=== PATIENT | male | born 1935 | race Caucasian/White ===

== ENCOUNTER 2017-09-10 17:19 | Emergency (ER) | payer MEDICARE, OTHER ==
[~2017-09-10] VITALS: Ht 160 cm; Wt 60.0 kg
[2017-09-10 17:23] VITALS: Ht 160 cm; Wt 60.0 kg
--- NOTE | 2017-09-10 17:45 | ERA ---
ER Documentation Chief Complaint Date/Time DATE: 09/10/17 TIME: 17:36 Chief Complaint bibr co weakness, for past few hours HPI 81-year-old [place]-speaking male comes in with his son for weakness that was first noticed 2-3 hours ago according to son. It was noticed that he is having trouble opening his pill bottle. Is also noticed that he was having trouble holding a cup by his . He has a history of 2 previous strokes. Son reports that his speech was a bit slurred and he was seeming slow at this time. He now states that that has resolved and the patient's right hand .net developer strength is now very strong he says. He is not any blood thinners except for an 81 mg aspirin. Motion translation is used for the patient to be other communicate that he feels well now and does not have any symptoms currently. ROS All systems reviewed and are negative except as per history of present illness. 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 ) Anesthesia Reaction: No Hx Neurological Disorder: No Hx Cardiac Disorders: Yes (htn , stroke ) Hx Psychiatric Problems: No Hx Miscellaneous Medical Probl: No Hx Alcohol Use: No Hx Substance Use: No Hx Tobacco Use: No Smoking Status: Former smoker Physical Exam Vitals Vital Signs Date Time Temp Pulse Resp B/P Pulse Ox O2 Delivery O2 Flow Rate FiO2 09/10/17 19:28 97.9 74 25 146/135 100 Nasal Cannula 09/10/17 18:09 68 18 133/65 99 Nasal Cannula 2.0 09/10/17 17:30 Nasal Cannula 2 09/10/17 17:23 97.8 89 18 122/76 98 Physical Exam Const: [] No distress Head: Atraumatic Eyes: Normal Conjunctiva ENT: Normal External Ears, Nose and Mouth. Neck: Full range of motion..~ No meningismus. No JVD Resp: Clear to auscultation bilaterally Cardio: Regular rate and rhythm, no murmurs Abd: Soft, non tender, non distended. Normal bowel sounds Skin: No petechiae or rashes Back: No midline or flank tenderness Ext: No cyanosis, or edema 5 out of 5 strength all 4 extremities both distally and proximally Neur: Awake and alert and oriented 3, cranial nerves II through XII intact, no cerebellar deficits. Good strength all extremities. NIH stroke scale is currently 0. Psych: Normal Mood and Affect Result Diagram: 09/10/17173809/10/171738 Results 24 hrs Laboratory Tests Test 09/10/17 17:39 09/10/17 17:42 White Blood Count 8.610^3/ul Red Blood Count 4.3410^6/ul Hemoglobin 13.7g/dl Hematocrit 39.8% Mean Corpuscular Volume 91.7fl Mean Corpuscular Hemoglobin 31.6pg Mean Corpuscular Hemoglobin Concent 34.4g/dl Red Cell Distribution Width 12.4% Platelet Count 62693^3/UL Mean Platelet Volume 10.5fl Neutrophils % 49.5% Lymphocytes % 30.9% Monocytes % 14.3% Eosinophils % 4.0% Basophils % 1.0% Nucleated Red Blood Cells % 0.0/100WBC Neutrophils # 4.310^3/ul Lymphocytes # 2.710^3/ul Monocytes # 1.210^3/ul Eosinophils # 0.310^3/ul Basophils # 0.110^3/ul Nucleated Red Blood Cells # 0.010^3/ul Prothrombin Time 13.6Sec Prothrombin Time Ratio 1.1 INR International Normalized Ratio 1.04 Activated Partial Thromboplast Time 34.7Sec Sodium Level 143mmol/L Potassium Level 4.5mmol/L Chloride Level 104mmol/L Carbon Dioxide Level 28mmol/L Anion Gap 16 Blood Urea Nitrogen 40mg/dl Creatinine 1.65mg/dl Glucose Level 137mg/dl Hemoglobin A1c 5.8% Calcium Level 9.2mg/dl Troponin I < 0.012ng/ml Bedside Glucose 144mg/dL Current Medications Medications (Trade) Dose Ordered Sig/Андрей Route PRN Reason Start Time Stop Time Status Last Admin Dose Admin Aspirin (Aspirin) 325 mg ONCE ONCE PO 09/10/17 18:30 09/10/17 18:31 DC 09/10/17 18:08 Procedures/MDM Transient ischemic attack. Very concerning symptoms for stroke in a patient with history of stroke. Symptoms were completely resolved however. His right .net developer strength is incredibly strong. No new is gimmick stroke visible on CT. He was given 325 mg of aspirin. Remain on surveillance system monitor with no signs of cardiac ischemia. He is going to be admitted for his TIA with high risk of completed stroke considering he has had a stroke before with residual deficits. Medium the panel in [facility] called and said that he needed transfer him there and thus I think he is unstable. He is not unstable. He will be transferred. EKG interpretation: Sinus rhythm rate of 71, normal axis, no ST or T-wave changes concerning for acute ischemia, normal intervals. monitoring analyst interpretation: Normal sinus rhythm without arrhythmia. Chest x-ray interpretation: I see no acute process, I see no infiltrates, no pneumothorax, no pulmonary edema, no fractures He had interpretation: See no acute process. No new stroke, no hemorrhage, no mass-effect or midline shift, no skull fracture Departure Diagnosis: Primary Impression: TIA (transient ischemic attack) Additional Impression: Renal insufficiency Condition: Serious ANITAALDOGUANAKOSHANE IZAGUIRRE Sep 10, 2017 17:45
[2017-09-10] MEDS ORDERED: LOSA1TAB21 PO (17:55)
[2017-09-10] MEDS ORDERED: SIMV10TA PO (17:56)
[2017-09-10] MEDS ORDERED: AMLO5TAB4 PO (17:56)
[2017-09-10] MEDS ORDERED: METO-336 PO (17:56)
--- NOTE | 2017-09-10 18:02 | RADRPT ---
PROCEDURE: CT brain without contrast CLINICAL INDICATION: Right hand weakness, confusion, slurred speech TECHNIQUE: CT of the brain without contrast performed on a multidetector CT scanner, with multiplan ar reformats. One or more of the following dose reduction techniques were used: Automated exposure control, adjustment in mA and / or kV according to patient size, use of iterative reconstructive leslee hnique. CTDIvol = 44 mGy; DLP = 720 mGy-cm. COMPARISON: None available FINDINGS: Small chronic left parietal infarct with adjacent gliosis identified. No acute intracranial hemorrha ge is identified. No extra-axial fluid collection is seen. There is no mass effect. No midline shift is identified. The ventricles and sulci are mild to moderately enlarged compatible with generalized volume loss. There are mild to moderate areas of hypodensity in the periventricular - deep white matter which are nonspecific but suggestive of chronic small vessel ischemic changes. Odell-white differentiation is otherwise preserved. Partly empty sella noted. Atherosclerotic calcifications of the proximal intracranial arteries are noted. Calvarium and skull base are intact. Mild left frontal sinus mucosal thickening, left maxillary sin us. Sharath-osteogenesis noted. IMPRESSION: 1. No evidence of acute intracranial pathology. 2. Small chronic left parietal infarct. 3. Mild to moderate volume loss, with chronic small vessel ischemic changes. RPTAT: QQ .Wilberto Bah MD, Date Time Electronically viewed and signed by .Wilberto Bah MD, MD on 09/10/2017 18:01 .O/
[2017-09-10 18:04] LABS: BASOPHIL # 0.1 10^3/ul (0.0-0.1); EOSINOPHILS # 0.3 10^3/ul (0.0-0.5); HEMATOCRIT 39.8 % (42.0-52.0); HEMOGLOBIN 13.7 g/dl (14.0-18.0); LYMPHOCYTES # 2.7 10^3/ul (0.8-2.9); LYMPHOCYTES % 30.9 % (15.0-51.0); MEAN CORPUSCULAR HEMOGLOBIN 31.6 pg (29.0-33.0); MEAN CORPUSCULAR HGB CONC 34.4 g/dl (32.0-37.0); MEAN CORPUSCULAR VOLUME 91.7 fl (82.0-101.0); MEAN PLATELET VOLUME 10.5 fl (7.4-10.4); MONOCYTE # 1.2 10^3/ul (0.3-0.9); MONOCYTES % 14.3 % (0.0-11.0); NEUTROPHIL # 4.3 10^3/ul (1.6-7.5); NEUTROPHILS % 49.5 % (39.0-77.0); PLATELET COUNT 253 10^3/UL (140-415); RED BLOOD COUNT 4.34 10^6/ul (4.70-6.10); RED CELL DISTRIBUTION WIDTH 12.4 % (11.5-14.5); WHITE BLOOD COUNT 8.6 10^3/ul (4.8-10.8)
[2017-09-10 18:19] LABS: INR 1.04; PARTIAL THROMBOPLASTIN TIME 34.7 Sec (25.0-35.0); PROTIME 13.6 Sec (12.2-14.2); PT RATIO 1.1
[2017-09-10 18:26] LABS: ANION GAP 16 (8-16); BLOOD UREA NITROGEN 40 mg/dl (7-20); CALCIUM 9.2 mg/dl (8.4-10.2); CARBON DIOXIDE 28 mmol/L (21-31); CHLORIDE 104 mmol/L (97-110); CREATININE 1.65 mg/dl (0.61-1.24); GLUCOSE 137 mg/dl (70-220); POTASSIUM 4.5 mmol/L (3.5-5.1); SODIUM 143 mmol/L (135-144)
[2017-09-10] MEDS ORDERED: ASPIRIN 325 MG TAB PO ONE (18:30)
--- NOTE | 2017-09-10 18:43 | RADRPT ---
PROCEDURE: XR Chest. CLINICAL INDICATION: Chest pain, altered mental status TECHNIQUE: A frontal view of the chest was performed. COMPARISON: None FINDINGS: The cardiomediastinal silhouette is within normal limits. The lungs are clear. No signs of pleural f luid or pneumothorax are seen. The osseous structures and soft tissues are unremarkable. IMPRESSION: No evidence for active cardiopulmonary disease. RPTAT: QQ .Shruthi Burnham MD, MD Date Time Electronically viewed and signed by .Shruthi Burnham MD, on 09/10/2017 18:43 .F/
[2017-09-10 18:53] LABS: TROPONIN-I < 0.012 ng/ml (0.00-0.12)
[2017-09-10 20:20] VITALS: BP 138/90; PULSE 77; RESP 20; TEMP 97.9
--- NOTE | 2017-09-11 06:25 | HP ---
Date/Time of Note Date/Time of Note DATE: 09/11/17 TIME: 06:16 Assessment/Plan VTE Prophylaxis VTE Prophylaxis Intervention: heparin Lines/Catheters IV [facility]ter [facility]from [facility] Saline Lock Assessment/Plan Assessment/Plan 1. 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 -CT of the head showed small chronic left parietal infarct otherwise was negative for any acute findings. -will obtain MRI of the brain and bilateral carotid Doppler ultrasound -Aspirin, statin and subcutaneous heparin for DVT prophylaxis -Physical therapy and speech/swallow evaluation -Neurology consult 2. History of CVA 2 -See #1 3. History of hypertension: BP within goal - Continue antihypertensives adjustment as needed 4. Presumed CKD -IV fluid -If no improvement in the morning, will obtain renal ultrasound and nephrology consult HPI/ROS Admit Date/Time Admit Date/Time Hx of Present Illness This is an 82-year-old male with a history of hypertension and CVA 2 who was brought to the ER for weakness and slurred speech. 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 He also noted mild slurred speech. His symptoms were noticed 3 hours prior to ER presentation , but has already resolved by the time he presented to the ER. Patient has a history of CVA 2, last one was almost a year ago. When he presented to the ER, vitals were stable. Head CT shows a small chronic left parietal infarct otherwise no acute findings. Labs shows BUN of 40 and creatinine 1.65 otherwise was in acceptable range. PMH/Family/Social Past Medical History Medical History: hypertension, other (CVA 2) Social History Alcohol Use: none Smoking Status: Unknown if ever smoked Drug Use: none Exam/Review of Systems Vital Signs Vitals Vital Signs Date Time Temp Pulse Resp B/P Pulse Ox O2 Delivery O2 Flow Rate FiO2 09/10/17 20:20 97.9 77 20 138/90 97 Room Air 2.0 Exam Constitutional: other (No acute distress) Head: atraumatic, normocephalic Eyes: EOMI, PERRL Respiratory: clear to auscultation, normal air movement Cardiovascular: nl pulses, regular rate and rhythm Gastrointestinal: non-tender, soft Extremities: normal pulses Neurological: nl strength Labs Result Diagram: 09/10/17 1739 09/10/17 1739 TONY LARIOS MD Sep 11, 2017 06:25
[2017-09-11] MEDS ORDERED: ACETAMINOPHEN 325 MG TAB PO PRN (06:30)
[2017-09-11] MEDS ORDERED: ALBUTEROL/IPRATROPIUM (NEB) 3 ML AMP HHN PRN (06:30)
[2017-09-11] MEDS ORDERED: morphine 2 MG INJ IV PRN (06:30)
[2017-09-11] MEDS ORDERED: NACL 0.9% 3 ML SYG IV SCH (06:30)
[2017-09-11] MEDS ORDERED: ONDANSETRON 4 MG INJ IV PRN (06:30)
[2017-09-11] MEDS ORDERED: ASPIRIN 81 MG TAB PO SCH (09:00)
[2017-09-11] MEDS ORDERED: METOPROLOL (XL) 50 MG TAB PO SCH (09:00)
[2017-09-11] MEDS ORDERED: AMLODIPINE 5 MG TAB PO SCH (09:00)
[2017-09-11] MEDS ORDERED: HEPARIN 5,000 UNIT/0.5 ML VIAL SC SCH (09:00)
[2017-09-11] MEDS ORDERED: ATORVASTATIN 20 MG TAB PO SCH (21:00)
== END 2017-09-10 20:26 | disposition left against medical advice (07) ==
LOC: E/R 17:19
DX: G45.9 Transient cerebral ischemic attack, unspecified (principal); N28.9 Disorder of kidney and ureter, unspecified; I10 Essential (primary) hypertension; R40.2142 Coma scale, eyes open, spontaneous, at arrival to emergency department; R40.2252 Coma scale, best verbal response, oriented, at arrival to emergency department; R40.2362 Coma scale, best motor response, obeys commands, at arrival to emergency department; Z87.891 Personal history of nicotine dependence
CPT/HCPCS: 36415; 70450; 71010; 80048; 82962; 83036; 84484; 85025; 85610; 85730